=== PATIENT | female | born 1955 | race African-American/Black ===

== ENCOUNTER 2017-03-30 17:54 | Emergency (ER) | payer BC ==
[~2017-03-30] VITALS: Ht 162.6 cm; Wt 85.0 kg
[2017-03-30] MEDS ORDERED: IBUPROFEN 600MG TABLET PO ONE (18:45)
[2017-03-30 19:48] VITALS: BP 149/68
== END 2017-03-30 20:45 | disposition home or self-care (01) ==
LOC: ER 18:12
DX: R07.89 Other chest pain (principal); M25.512 Pain in left shoulder; M79.605 Pain in left leg; M25.552 Pain in left hip; M79.604 Pain in right leg; M25.551 Pain in right hip; Y92.488 Other paved roadways as the place of occurrence of the external cause; V49.59XA Passenger injured in collision with other motor vehicles in traffic accident, initial encounter; Y93.89 Activity, other specified
CPT/HCPCS: 71020; 73030; 73522; 73552; 93005; 99284; Z7610